=== PATIENT | female | born 1965 | race Caucasian/White ===

== ENCOUNTER 2019-01-10 09:20 | Emergency (ER) | payer OTHER ==
[2019-01-10] MEDS: TETRACAINE 0.5% 4 ML OPH RIGHT EYE (10:05)
[2019-01-10] MEDS: FLUORESCEIN STRIP RIGHT EYE (10:06)
[2019-01-10 10:54] LABS: URINE BLOOD (Dip) POC Trace-intact (NEGATIVE); URINE GLUCOSE (Dip) POC Negative (NEGATIVE); URINE KETONES (Dip) POC Negative (NEGATIVE); URINE LEUKOCYTE EST (Dip) POC 2+ (NEGATIVE); URINE NITRITE (Dip) POC Negative (NEGATIVE); URINE TOTAL PROTEIN POC Negative (NEGATIVE)
== END 2019-01-10 11:37 | disposition home or self-care (01) ==
LOC: FTE 09:20
DX: H11.31 Conjunctival hemorrhage, right eye (principal); E11.9 Type 2 diabetes mellitus without complications; N30.90 Cystitis, unspecified without hematuria; I10 Essential (primary) hypertension; Z79.84 Long term (current) use of oral hypoglycemic drugs
CPT/HCPCS: 81003; 99283